=== PATIENT | male | born 1965 | race African-American/Black ===

== ENCOUNTER 2019-09-29 21:55 | Observation (INO) ==
[2019-09-29] MEDS ORDERED: ASPIRIN PO ONE (22:00)
[2019-09-29 22:20] LABS: BASO# 0.06 X1000 (0.0-0.2); BASO% 0.7 % (0.0-0.8); EOS# 0.17 X1000 (0.0-0.7); EOS% 2.1 % (0.0-10.0); HEMATOCRIT 41.6 % (42.0-52.0); HEMOGLOBIN 13.2 g/dL (14.0-18.0); IMM GRAN# 0.02 X1000 (0.0-0.04); IMM GRAN% 0.2 % (0.0-0.5); LYMPH% 26.9 % (20.5-51.1); MCH 29.4 PG (27-31); MCHC 31.7 g/dL (33-37); MCV 92.7 FL (81-99); MONO# 0.69 X1000 (0.11-0.59); MONO% 8.4 % (1.7-9.3); MPV 10.1 FL (7.4-10.4); NEUT# 5.04 X1000 (1.4-6.5); NEUT% 61.7 % (42.2-75.2); PLT 222 X1000 (130-400); RBC 4.49 XMIL (4.7-6.1); RDW 15.2 % (11.5-14.5); WBC 8.18 X1000 (4.8-10.8)
--- NOTE | 2019-09-29 22:26 | PROVIDER DOCUMENTATION ---
This chart was entered by [place] Beverly Scribe, acting as scribe for Spencer Costello MD. HPI-Chest Pain - General Chief Complaint: Chest Pain Stated Complaint: CHEST PAIN Time Seen by Provider: 09/29/19 21:58 Source: patient Allergies/Adverse Reactions: Patient Allergies Allergy/AdvReac Type Severity Reaction Status Date / Time No Known Allergies Allergy Verified 09/29/19 22:04 Home Medications: Home Medication List Medication Instructions Recorded Confirmed Last Taken Type Aspirin 81 mg PO DAILY 06/05/17 09/29/19 08/23/19 History Omeprazole [Prilosec] 40 mg PO DAILY 12/13/17 09/29/19 08/24/19 History Allopurinol 100 mg PO DAILY 04/05/18 09/29/19 08/24/19 History Metoprolol Tartrate 25 mg PO BID 04/05/18 09/29/19 08/24/19 History Amlodipine Besylate 2.5 mg PO DAILY 08/01/19 09/29/19 08/03/19 06:00 History Atorvastatin Calcium 40 mg PO DAILY 08/01/19 09/29/19 08/23/19 History Calcium Carbonate [Tums] 1 tab PO TID CC 08/01/19 09/29/19 08/23/19 History Cinacalcet [Sensipar] 30 mg PO DAILY 08/01/19 09/29/19 08/24/19 History Gabapentin 100 mg PO QHS 08/01/19 09/29/19 08/23/19 History Hydrocodone/Acetaminophen 1 tab PO 4XDAY PRN 08/01/19 09/29/19 08/24/19 History [Hydrocodone-Acetamin 7.5-325] Lanthanum Carbonate 1,500 mg PO TID CC 08/01/19 09/29/19 08/23/19 History Sennosides [Senna Laxative] 50 mg PO BID 08/01/19 09/29/19 08/23/19 History Clopidogrel Bisulfate [Clopidogrel] 75 mg PO DAILY 09/21/19 09/29/19 Unknown History Icosapent Ethyl [Vascepa] 1 gm PO DAILY 09/21/19 09/29/19 Unknown History - History of Present Illness-CP Nature of Presenting Problem: pt is a 53 yr old male presenting with complaint of chest pain, 7 onset this afternoon, after returning home from dialysis tx. pt admits mild shortness of breath. pt denies diaphoresis, nausea or vomiting. pt admits hx of [place], CABG and stents, pt had 2 stents placed 08/22/19 at . pt is followed by Dr Boogie. Location: reports: substernal Chest Pain Radiation: reports: no radiation Quality of Pain: reports: aching Severity in ED: moderate Onset/Duration: this afternoon Timing: still present Context/Activities at Onset: reports: light activity Modifying Factors: improves with: other medication (Lortab-no relief) Associated Symptoms: reports: shortness of breath. denies: diaphoresis, nausea, vomiting Nitro Today/Relief: no nitro taken today Aspirin Treatment Today: 81 mg x 1 (this AM), provided at home Prior Chest Pain/Cardiac Workup: reports: cardiac cath, heart attack Similar Symptoms Previously?: Yes Recently Seen Here or By Another Healthcare Provider: Yes Review of Systems - Adult - REVIEW OF SYSTEMS - ADULT Constitutional: denies: fever, fatique Eyes: denies: blurred vision, double vision Ears, Nose, Mouth & Throat: reports: no symptoms reported Cardiovascular: reports: chest pain. denies: palpitations, syncope Respiratory: reports: shortness of breath. denies: cough Gastrointestinal: denies: abdominal pain, nausea, vomiting Genitourinary: denies: dysuria, frequency, flank pain Musculoskeletal: denies: back pain, neck pain Integumentary: reports: no symptoms reported Neurological: denies: dizziness/vertigo, headache/migraines, syncope Psychiatric: reports: no symptoms reported Endocrine: reports: no symptoms reported Hematologic/Lymphatic: reports: no symptoms reported Allergic/Immunologic: reports: no symptoms reported All Other Systems: Reviewed and Negative Past History - Adult - PAST MEDICAL HISTORY-ADULT Review of Records: reports: Old Records Reviewed, Nursing Assessment Review, Medications Reviewed, Social history reviewed & non-contributory. Major Childhood Illnesses: reports: denies history Cardiovascular: reports: CAD, HTN, hyperlipidemia Respiratory: reports: sleep apnea Gastrointestinal: reports: denies history Obstetrical/Gynecological: reports: denies history Genitourinary: reports: dialysis (M-W-F), ESRD, kidney disease Musculoskeletal: reports: other (Gout) Neurological: reports: TIA Endocrine/Immune: reports: denies history Other Conditions: reports: denies history - PRIOR SURGERIES/PROCEDURES Surgical/Procedure History: reports: joint replacement, other (cariotidendoateroectomy) - PRIOR HOSPITALIZATIONS Prior Hospitalizations: reports: for other non-related - IMMUNIZATION STATUS Childhood Immunizations: See Nurse Assessment Flu Vaccine: See Nurse Assessment - FAMILY HISTORY Family History: reviewed, not pertinent - SOCIAL HISTORY Smoking: quit greater than 1 year Substance Use: denies Living Situation: alone Physical Exam-General - PHYSICAL EXAM-ADULT Initial Vital Signs Reviewed: Yes - CONSTITUTIONAL General Appearance: appears well, alert, no apparent distress - EYES Eyes: PERRL/EOMI - HEAD, EARS, NOSE, MOUTH & THROAT HENMT: normocephalic/atraumatic, moist mucous membranes, normal ENT inspection - NECK Neck: non-tender, full range of motion, supple, normal inspection - RESPIRATORY Respiratory: chest non-tender, lungs clear, normal breath sounds, no respiratory distress, no accessory muscle use - CARDIOVASCULAR Cardiovascular: normal peripheral pulses, regular rate, rhythm, no edema - GASTROINTESTINAL (ABDOMEN) Abdominal Exam: normal bowel sounds, non tender, soft - LYMPHATIC Lymphatic: no adenopathy - MUSCULOSKELETAL Back Exam: normal inspection, no CVA tenderness, no vertebral tenderness Extremity: normal range of motion, non-tender, normal gait, normal inspection - SKIN Integumentary: normal color, normal turgor, warm/dry - NEUROLOGIC Neurologic: grossly normal, no motor/sensory deficits - PSYCHIATRIC Psych/Mental Status: normal mood/affect - HEART Score HEART Score: History: Moderately Suspicious HEART Score: ECG: Normal HEART Score: Age: 45-65 Years HEART Score: Risk Factors for Atherosclerotic Disease: > or = 3 Risk Factors or History of Atherosclerotic Disease HEART Score: Troponin: < or = Normal Limit Total HEART Score:: 4 Progress - PLAN OF CARE/RESULTS Progress/Plan/Lab Results: Vital Signs - 8 hr 09/29/19 22:01 Temperature 97.4 F L Pulse Rate 100 H Respiratory Rate 18 Blood Pressure 116/78 O2 Sat by Pulse Oximetry 100 Laboratory Results - last 24 hr 09/29/19 09/29/19 09/29/19 22:13 22:13 22:13 WBC RBC Hgb Hct MCV MCH MCHC RDW Std Deviation Plt Count MPV Immature Gran % (Auto) Neut % (Auto) Lymph % (Auto) [place] % (Auto) Eos % (Auto) Baso % (Auto) Immature Gran # (Auto) Neut # (Auto) Lymph # (Auto) [place] # (Auto) Eos # (Auto) Baso # (Auto) D-Dimer, Quantitative 0.42 Sodium Potassium Chloride Carbon Dioxide Anion Gap BUN Creatinine Estimated GFR/1.73 m2 BUN/Creatinine Ratio Glucose Calculated Osmolality Calcium Creatine Kinase 119 Troponin T 0.013 09/29/19 09/29/19 22:13 22:13 WBC 8.18 RBC 4.49 L Hgb 13.2 L Hct 41.6 L MCV 92.7 MCH 29.4 MCHC 31.7 L RDW Std Deviation 15.2 H Plt Count 222 MPV 10.1 Immature Gran % (Auto) 0.2 Neut % (Auto) 61.7 Lymph % (Auto) 26.9 Parmer % (Auto) 8.4 Eos % (Auto) 2.1 Baso % (Auto) 0.7 Immature Gran # (Auto) 0.02 Neut # (Auto) 5.04 Lymph # (Auto) 2.20 [place] # (Auto) 0.69 H Eos # (Auto) 0.17 Baso # (Auto) 0.06 D-Dimer, Quantitative Sodium 139 Potassium 4.0 Chloride 95 L Carbon Dioxide 28 Anion Gap 16 BUN 19 Creatinine 8.1 H Estimated GFR/1.73 m2 7 BUN/Creatinine Ratio 2 Glucose 114 H Calculated Osmolality 281 Calcium 9.4 Creatine Kinase Troponin T Orders Category Date Time Status Cardiac Monitoring DIRECTED Care 09/29/19 21:59 Active Saline Loc NOW Care 09/29/19 22:00 Active CHEST-1 VIEW [RAD] Stat Exams 09/29/19 22:03 Taken BMP [BASIC METABOLIC PANEL] [CHEM] Stat Lab 09/29/19 22:13 Completed CBC WITH ELECTRONIC DIFF [HEME] Stat Lab 09/29/19 22:13 Completed CK PROFILE [SP CHEM] Stat Lab 09/29/19 22:13 Completed D-DIMER [COAG] Stat Lab 09/29/19 22:13 Completed TROPONIN T Stat Lab 09/29/19 22:13 Completed Aspirin Med 09/29/19 22:00 Discontinued 324 mg PO NOW ONE Oxygen Device Stat Oth 09/29/19 22:01 Active EKG [EKG] Stat Ther 09/29/19 21:59 Ordered Result Diagrams: 09/29/19 22:13 09/29/19 22:13 - EKG 1 Time of EKG reading by physician:: 22:01 EKG Read and Signed by:: Spencer Costello EKG Interpretation (*Must complete 3 of following elements*): Normal Rate: 93 Rhythm: nsr Sentinel: normal QRS: normal [place] Interval: normal ST Wave: normal - CONSULTS/PCP/HOSPITALIST Notification #1 *Consult/PCP/Hospitalist*: Dr. Myrick Time Discussed: 12:35 Consult Disposition: Admit Departure - Departure Date of Disposition Decision: 09/30/19 Time of Disposition Decision: 00:39 DIAGNOSIS: Chronic renal disease Qualifiers: Chronic kidney disease stage: on chronic dialysis Qualified Code(s): N18.6 - End stage renal disease Chest pain Qualifiers: Chest pain type: unspecified Qualified Code(s): R07.9 - Chest pain, unspecified CAD (coronary artery disease) Qualifiers: Coronary Disease-Associated Artery/Lesion type: unspecified vessel or lesion type [place] vs. transplanted heart: [place] heart Associated angina: angina presence unspecified Qualified Code(s): I25.10 - Atherosclerotic heart disease of [place] coronary artery without angina pectoris Disposition: ADMITTED INPATIENT 09 Certified Medical Emergency: Emergent Condition: Stable Referrals and Follow-Ups: Sandra Phillips CRNP [Primary Care Provider] - - Critical Care Note This patient required my direct & personal management of CC.: No Attestation - Physician/ JULEE Attestation Patient care was provided by Advanced Practice Provider:: No The physician spent face to face time with patient:: Yes Advanced Practice Provider documentation review:: Supervising physician onsite and consulted in the evaluation and care of this patient. The physician did have a face to face encounter with the patient. This chart was documented by the indicated scribe, (J[place] Beverly Scribe) and accurately reflects the services I performed and decisions made by me, Spencer Costello MD, as attested by the provider's signature.
[2019-09-29 22:40] LABS: CALCIUM 9.4 mg/dL (8.8-10.2)
[2019-09-29 22:41] LABS: CREATININE 8.1 mg/dL (0.7-1.2)
[2019-09-30] MEDS ORDERED: ZOFRAN IV PRN (00:55)
[2019-09-30] MEDS ORDERED: MORPHINE IV PRN (00:55)
--- NOTE | 2019-09-30 00:59 | EKG Report ---
Test Performed on : 09/29/2019 10:01:10 PM Test Reason : chest pain Blood Pressure : / mmHG Vent. Rate : 093 BPM Atrial Rate : 093 BPM P-R Int : 190 ms QRS Dur : 090 ms QT Int : 348 ms P-R-T Axes : 062 065 053 degrees QTc Int : 432 ms Normal sinus rhythm. Normal ECG When compared with ECG of 21-SEP-2019 14:02, (Unconfirmed) No significant change was found Unconfirmed Result
[2019-09-30] MEDS ORDERED: FLU VACCINE IM ONE (02:30)
--- NOTE | 2019-09-30 06:29 | EKG Report ---
Test Performed on : 09/30/2019 01:00:59 AM Test Reason : cp Blood Pressure : / mmHG Vent. Rate : 080 BPM Atrial Rate : 080 BPM P-R Int : 204 ms QRS Dur : 086 ms QT Int : 376 ms P-R-T Axes : 031 032 053 degrees QTc Int : 433 ms Normal sinus rhythm. Possible Left atrial enlargement Borderline ECG When compared with ECG of 29-SEP-2019 22:01, (Unconfirmed) No significant change was found Unconfirmed Result
--- NOTE | 2019-09-30 07:48 | Diag Imaging Result Doc PS360 ---
EXAM: CHEST-1 VIEW - 09/29/2019 HISTORY: cp TECHNIQUE: One view chest COMPARISON: 09/01/2019 FINDINGS: Heart size appears normal. There are sternal wires from previous surgery again seen. The lungs appear clear. There is no pleural effusion or pneumothorax identified. IMPRESSION: No evidence of acute disease. Electronically signed by Royce Acosta 09/30/2019 7:46 AM
[2019-09-30 07:59] VITALS: BP 109/71
[2019-09-30] MEDS ORDERED: NORCO-7.5 PO PRN (09:18)
[2019-09-30] MEDS ORDERED: PLAVIX PO SCH (09:30)
[2019-09-30] MEDS ORDERED: SENSIPAR PO SCH (09:30)
[2019-09-30] MEDS ORDERED: ZYLOPRIM PO SCH (09:30)
[2019-09-30] MEDS ORDERED: NORVASC PO SCH (09:30)
[2019-09-30] MEDS ORDERED: LANTHANUM CARBONATE PO SCH (12:00)
[2019-09-30] MEDS ORDERED: ICOSAPENT ETHYL 1 GM PO SCH (13:00)
--- NOTE | 2019-09-30 13:54 | HISTORY AND PHYSICAL ---
ADDENDUM: The patient was seen and examined by myself. Full note dictated and discussed with nurse practitioner. The patient was admitted to the hospital with chest pain. Thankfully, so far his enzymes have been negative. He notes that his chest pain has resolved. He does have end- stage renal disease on dialysis. We are going to admit him to the hospital, rule out [place], continue home medications. cc: Jose R Myrick MD
--- NOTE | 2019-09-30 14:41 | DISCHARGE SUMMARY ---
ADMISSION DATE: 09/30/2019 DISCHARGE DATE: 09/30/2019 DISCHARGE DIAGNOSES: 1. Chest pain resolved. 2. End-stage renal disease on dialysis. 3. Reflux. 4. Gout. 5. Hypertension. 6. Chronic pain. 7. Hypertriglyceridemia. 8. Known coronary artery disease with a history of [place], CABG, and stenting, most recent stents were placed 08/22/2019. CONSULTATIONS: None. PROCEDURES: None. BRIEF HOSPITAL COURSE: The patient is a 53-year-old male who presented to the hospital with chest pain. Thankfully, his enzymes are negative. His symptoms have improved. He does have known end- stage renal disease for which he takes dialysis Wednesday, Wednesday, Wednesday. Symptoms started sometime on Wednesday afternoon after dialysis. Thankfully, as noted, they have resolved. He has been able to eat and ambulate without any difficulty. DISCHARGE MEDICATIONS: No changes made on his discharge medications compared to his admission list. DISPOSITION: Patient will be discharged home. He will continue all of his medications without any changes. He will follow up with his primary paste mixing supervisor, Dr. 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 Stallworth. TIME SPENT: Greater than 30 minutes was spent in discharge planning and instructions. cc: Jose R Myrick MD
[2019-09-30] MEDS ORDERED: NEURONTIN PO SCH (21:00)
[2019-09-30] MEDS ORDERED: LIPITOR PO SCH (21:00)
[2019-10-01] MEDS ORDERED: PRILOSEC PO SCH (07:00)
== END 2019-09-30 11:49 | disposition home or self-care (01) ==
LOC: P.ED 21:55 → P.MEDSURG 21:55
PROVIDERS: ADMIT Family Medicine; ATTEND Family Medicine